=== PATIENT | male | born 1970 | race Hispanic/Latino ===

== ENCOUNTER 2017-06-03 09:10 | Emergency (ER) | payer BC, OTHER | END 2017-06-03 09:59 | disposition home or self-care (01) | LOC: EDH 09:10 | DX: S90.111A Contusion of right great toe without damage to nail, initial encounter (principal); Z98.890 Other specified postprocedural states; W18.39XA Other fall on same level, initial encounter; Y93.89 Activity, other specified; Y92.098 Other place in other non-institutional residence as the place of occurrence of the external cause; Y99.8 Other external cause status | CPT/HCPCS: 73660 ==

== ENCOUNTER 2022-05-24 13:30 | Emergency (ER) | payer OTHER ==
[~2022-05-24] VITALS: Ht 180.3 cm; Wt 72.1 kg
[2022-05-24 14:06] LABS: BASOPHILS % (AUTO) 0.7 % (0.0-5.0); EOSINOPHILS % (AUTO) 1.5 % (0.0-8.0); HEMATOCRIT 43.4 % (42-54); LYMPHOCYTES % (AUTO) 13.7 % (21.0-51.0); MEAN CORPUSCULAR HEMOGLOBIN 30.1 pg (27.0-33.0); MEAN CORPUSCULAR HGB CONC 34.1 g/dL (32.0-36.0); MEAN CORPUSCULAR VOLUME 88.4 fL (79-99); MONOCYTES % (AUTO) 6.9 % (3.0-13.0); NEUTROPHILS % (AUTO) 74.1 % (40.0-77.0); PLATELET COUNT (AUTO) 334 K/uL (130-400); RED BLOOD CELL COUNT(AUTO) 4.91 MIL/uL (4.50-6.20); RED CELL DISTRIBUTION WIDTH 12.7 % (11.0-15.5); WHITE BLOOD COUNT (AUTO) 11.6 K/uL (4.8-10.8)
[2022-05-24 14:19] LABS: POTASSIUM 3.6 mmol/L (3.5-5.1)
[2022-05-24] MEDS ORDERED: ACETAMINOPHEN 500 MG TABLET ONE (14:21)
[2022-05-24 14:25] LABS: ALBUMIN 3.7 g/dL (3.5-5.0)
[2022-05-24] MEDS ORDERED: 0.9%NACL 1000ML 1,000 ML IV ONE (14:30)
[2022-05-24 14:35] LABS: APPEARANCE,URINE CLEAR (CLEAR); BACTERIA,URINE RARE /HPF (None Seen); BILIRUBIN,URINE NEGATIVE (NEGATIVE); COLOR,URINE LIGHT-YELLOW (YELLOW); GLUCOSE, URINE (UA) NEGATIVE (NEGATIVE); KETONES,URINE NEGATIVE (NEGATIVE); LEUKOCYTE ESTERASE ,URINE NEGATIVE Leu/uL (NEGATIVE); NITRATE,URINE NEGATIVE (NEGATIVE); OCCULT BLOOD,URINE NEGATIVE (NEGATIVE); PH,URINE 6.5 (5.0-8.0); PROTEIN,URINE NEGATIVE (NEGATIVE); RBC,URINE 0-1 /HPF (0-1); UROBILINOGEN,URINE 0.2 mg/dL (0.2-1.0); WBC,URINE 0-1 /HPF (0-1); YEAST,URINE BUDDING RARE /HPF (None Seen)
[2022-05-24 14:39] VITALS: BP 110/72
[2022-05-24] MEDS ORDERED: LEVO750T68 PO (17:55)
== END 2022-05-24 18:56 | disposition home or self-care (01) ==
LOC: EDH 13:30
DX: R33.9 Retention of urine, unspecified (principal); K52.9 Noninfective gastroenteritis and colitis, unspecified; N30.90 Cystitis, unspecified without hematuria; E86.0 Dehydration; Z20.822 Contact with and (suspected) exposure to COVID-19; Z98.890 Other specified postprocedural states
CPT/HCPCS: 99284; 74176; 96360; 87635; 82550; 84484; 80053; 85025; 87040 ×2; 87804 ×2; 83605; 81001; 36415; 51702; C9803; J7030

== ENCOUNTER → 2022-06-21 | Outpatient (CLI) | payer OTHER ==
[~2022-06-21] MED LIST: LEVO750T68 PO
[2022-06-21 10:46] LABS: EOSINOPHILS % (AUTO) 4.5 % (0.0-8.0); HEMATOCRIT 43.2 % (42-54); LYMPHOCYTES % (AUTO) 30.6 % (21.0-51.0); MEAN CORPUSCULAR HEMOGLOBIN 30.9 pg (27.0-33.0); MEAN CORPUSCULAR HGB CONC 32.6 g/dL (32.0-36.0); MEAN CORPUSCULAR VOLUME 94.5 fL (79-99); MONOCYTES % (AUTO) 11.6 % (3.0-13.0); NEUTROPHILS % (AUTO) 51.9 % (40.0-77.0); PLATELET COUNT (AUTO) 191 K/uL (130-400); RED BLOOD CELL COUNT(AUTO) 4.57 MIL/uL (4.50-6.20); RED CELL DISTRIBUTION WIDTH 13.7 % (11.0-15.5); WHITE BLOOD COUNT (AUTO) 4.8 K/uL (4.8-10.8)
[2022-06-21 11:02] LABS: APPEARANCE,URINE CLEAR (CLEAR); BILIRUBIN,URINE NEGATIVE (NEGATIVE); COLOR,URINE YELLOW (YELLOW); GLUCOSE, URINE (UA) NEGATIVE (NEGATIVE); KETONES,URINE NEGATIVE (NEGATIVE); LEUKOCYTE ESTERASE ,URINE NEGATIVE Leu/uL (NEGATIVE); NITRATE,URINE NEGATIVE (NEGATIVE); OCCULT BLOOD,URINE NEGATIVE (NEGATIVE); PH,URINE 6.5 (5.0-8.0); PROTEIN,URINE NEGATIVE (NEGATIVE); UROBILINOGEN,URINE 0.2 mg/dL (0.2-1.0)
[2022-06-21 11:02] LABS: HEMOGLOBIN A1C 5.5 % (4.0-6.0)
[2022-06-21 11:11] LABS: ALBUMIN 4.1 g/dL (3.5-5.0); CREATININE 0.8 mg/dL (0.5-1.5); POTASSIUM 3.8 mmol/L (3.5-5.1); THYROID STIMULATING HORMONE 1.49 uIU/mL (0.36-3.74); TOTAL PROTEIN, SERUM 7.5 g/dL (6.0-8.3)
== END | disposition home or self-care (01) ==
LOC: LAB 09:34
PROVIDERS: ATTEND Nurse Practitioner Family
DX: Z00.01 Encounter for general adult medical examination with abnormal findings (principal); Z12.5 Encounter for screening for malignant neoplasm of prostate; R33.8 Other retention of urine
CPT/HCPCS: 36415; 80053; 80061; 81003; 83036; 84153; 84154; 84443; 85025

== ENCOUNTER → 2022-06-23 | Outpatient (CLI) | payer OTHER | END | disposition home or self-care (01) | LOC: RAH 07:40 | PROVIDERS: ATTEND Nurse Practitioner Family | DX: N32.89 Other specified disorders of bladder (principal); R33.8 Other retention of urine | CPT/HCPCS: 76856 ==

== ENCOUNTER → 2022-10-06 | Outpatient (CLI) | payer OTHER ==
[2022-10-06 08:56] LABS: BASOPHILS % (AUTO) 0.7 % (0.0-5.0); HEMATOCRIT 42.4 % (42-54); LYMPHOCYTES % (AUTO) 22.1 % (21.0-51.0); MEAN CORPUSCULAR HEMOGLOBIN 30.5 pg (27.0-33.0); MEAN CORPUSCULAR HGB CONC 33.3 g/dL (32.0-36.0); MEAN CORPUSCULAR VOLUME 91.6 fL (79-99); MONOCYTES % (AUTO) 9.4 % (3.0-13.0); NEUTROPHILS % (AUTO) 63.4 % (40.0-77.0); PLATELET COUNT (AUTO) 202 K/uL (130-400); RED BLOOD CELL COUNT(AUTO) 4.63 MIL/uL (4.50-6.20); RED CELL DISTRIBUTION WIDTH 12.6 % (11.0-15.5); WHITE BLOOD COUNT (AUTO) 5.6 K/uL (4.8-10.8)
[2022-10-06 08:58] LABS: APPEARANCE,URINE CLEAR (CLEAR); BILIRUBIN,URINE NEGATIVE (NEGATIVE); COLOR,URINE LIGHT-YELLOW (YELLOW); GLUCOSE, URINE (UA) NEGATIVE (NEGATIVE); KETONES,URINE NEGATIVE (NEGATIVE); LEUKOCYTE ESTERASE ,URINE NEGATIVE Leu/uL (NEGATIVE); NITRATE,URINE NEGATIVE (NEGATIVE); OCCULT BLOOD,URINE NEGATIVE (NEGATIVE); PROTEIN,URINE NEGATIVE (NEGATIVE); UROBILINOGEN,URINE 0.2 mg/dL (0.2-1.0)
[2022-10-06 09:08] LABS: HEMOGLOBIN A1C 5.5 % (4.0-6.0)
[2022-10-06 09:20] LABS: ALBUMIN 3.8 g/dL (3.5-5.0); CREATININE 0.8 mg/dL (0.5-1.5); POTASSIUM 4.1 mmol/L (3.5-5.1); THYROID STIMULATING HORMONE 2.31 uIU/mL (0.36-3.74)
== END | disposition home or self-care (01) ==
LOC: LAB 08:02
PROVIDERS: ATTEND Nurse Practitioner Family
DX: Z00.01 Encounter for general adult medical examination with abnormal findings (principal); Z12.5 Encounter for screening for malignant neoplasm of prostate; R33.8 Other retention of urine
CPT/HCPCS: 36415; 80053; 80061; 81003; 83036; 84153; 84443; 85025; 87088

== ENCOUNTER → 2024-10-23 | Outpatient (CLI) | payer OTHER ==
[2024-10-23 10:39] LABS: IMMATURE GRANULOCYTE ABSOLUTE 0.05 K/uL (0-1); NUCLEATED RED BLOOD CELLS 0.0 % (0.0-0.19); PLATELET COUNT (AUTO) 208 K/uL (130-400); RED BLOOD CELL COUNT(AUTO) 4.91 MIL/uL (4.50-6.20); RED CELL DISTRIBUTION WIDTH 12.7 % (11.0-15.5); WHITE BLOOD COUNT (AUTO) 5.2 K/uL (4.8-10.8)
[2024-10-23 10:42] LABS: APPEARANCE,URINE CLEAR (CLEAR); GLUCOSE, URINE (UA) NEGATIVE (NEGATIVE); LEUKOCYTE ESTERASE ,URINE NEGATIVE Leu/uL (NEGATIVE); NITRATE,URINE NEGATIVE (NEGATIVE); OCCULT BLOOD,URINE NEGATIVE (NEGATIVE)
[2024-10-23 10:44] LABS: ADD UA MICROSCOPIC NO
[2024-10-23 11:13] LABS: ASPARTATE AMINOTRANSFERASE 24.0 U/L (10-37); CREATININE 0.9 mg/dL (0.5-1.3); GLOMERULAR FILTR. RATE CALC 102.0 mL/min (>90); GLUCOSE,RANDOM 98.0 mg/dL (70-105); LDL DIRECT 172.0 mg/dL (0-99); SODIUM SERUM 141.0 mmol/L (136-145); TOTAL PROTEIN, SERUM 7.7 g/dL (6.0-8.3); UREA NITROGEN, BLOOD 16.0 mg/dL (7-18)
== END | disposition home or self-care (01) ==
LOC: LAB 10:03
PROVIDERS: ATTEND Nurse Practitioner Family
DX: Z13.1 Encounter for screening for diabetes mellitus (principal); Z12.5 Encounter for screening for malignant neoplasm of prostate; Z11.59 Encounter for screening for other viral diseases; E78.5 Hyperlipidemia, unspecified; E55.9 Vitamin D deficiency, unspecified; R53.82 Chronic fatigue, unspecified; Z00.01 Encounter for general adult medical examination with abnormal findings
CPT/HCPCS: 36415; 80053; 80061; 81003; 82306; 82607; 83036; 83735; 84153; 84443; 85025; 86803

== ENCOUNTER → 2024-10-30 | Outpatient (CLI) | payer OTHER ==
--- NOTE | 2024-10-31 08:03 | HMCIMG ---
EXAMINATION: ULTRASOUND OF THE URINARY BLADDER. CLINICAL HISTORY: Urinary retention. COMPARISON: CT abdomen and pelvis without contrast dated 05/24/2022. TECHNIQUE: Real-time grayscale ultrasound images of the urinary bladder. FINDINGS: Urinary bladder is well distended and normal in caliber with wall thickness (0.20 cm). There are no calculi. Pre-void volume: 108 cc, Post-void volume: 75 cc. The prostate gland is bulky in caliber and measures 4.3 x 3.3 x 4.4 cm in the craniocaudal, AP, and transverse dimensions respectively with a volume of 33 cc. No pelvic ascites. IMPRESSION: Mild prostatic hypertrophy. Significant post-void residue. /Connie
== END | disposition home or self-care (01) ==
LOC: RAH 08:32
PROVIDERS: ATTEND Nurse Practitioner Family
DX: N40.0 Benign prostatic hyperplasia without lower urinary tract symptoms (principal); R33.9 Retention of urine, unspecified
CPT/HCPCS: 76857

== ENCOUNTER 2025-02-07 06:41 | Day surgery (SDC) | payer OTHER ==
[~2025-02-07] VITALS: Ht 180.3 cm; Wt 77.1 kg
[2025-02-07] VITALS (11 sets, daily range): BP systolic 100–117; BP diastolic 61–75; PULSE 53–64; RESP 14–16; TEMP 97–98
[~2025-02-07 06:41] MED LIST changes: -LEVO750T68 PO; +ROSU10TA98 PO
[2025-02-07] MEDS: 0.9%NACL 1000ML 1,000 ML IV ONE (09:58)
== END 2025-02-07 10:43 | disposition home or self-care (01) ==
LOC: ENDO 06:41 → DAH 06:41 → ENDO 10:43
PROVIDERS: ATTEND Internal Medicine Gastroenterology
DX: R14.0 Abdominal distension (gaseous) (principal); R68.81 Early satiety; E78.00 Pure hypercholesterolemia, unspecified; Z79.899 Other long term (current) drug therapy; Z98.890 Other specified postprocedural states
CPT/HCPCS: 45378; J7030; J2704 ×2; A4215 ×2; A4223; A4222; A4221; A4663; A4606; J3490